=== PATIENT | female | born 1990 | race African-American/Black ===

== ENCOUNTER 2022-04-08 10:58 | Emergency (ER) | payer OTHER ==
[2022-04-08 11:16] VITALS: BP 114/65; PULSE 73; TEMP 99.2; BMI 30.1
[2022-04-08] MEDS ORDERED: DEXAMETHASONE SOD PHOSPHATE 10 MG/1 ML VIAL PO ONE (12:42)
[2022-04-08] MEDS ORDERED: DEXAMETHASONE SOD PHOSPHATE 10 MG/1 ML VIAL ONE (12:54)
== END 2022-04-08 14:21 | disposition home or self-care (01) ==
LOC: JER 10:58
DX: J02.9 Acute pharyngitis, unspecified (principal)
CPT/HCPCS: 87651; 99283-25; J1100

== ENCOUNTER 2022-08-30 08:27 | Emergency (ER) | payer OTHER ==
[2022-08-30 08:41] VITALS: BP 106/71; PULSE 105; RESP 17; TEMP 98.2; BMI 35.3
== END 2022-08-30 10:17 | disposition home or self-care (01) ==
LOC: JERFT 08:27
DX: N76.4 Abscess of vulva (principal)
CPT/HCPCS: 99282-25

== ENCOUNTER 2022-11-09 04:01 | Day surgery (SDC) | payer OTHER ==
[2022-11-04 08:55] VITALS: BMI 36.0
[2022-11-09] MEDS ORDERED: BUPIVACAINE HCL/PF 0.5% (5MG/ML) 10 ML VIAL ONE (10:35)
[2022-11-09] MEDS ORDERED: LIDOCAINE HCL 1%, 10 MG/ML (20ML VIAL) ONE (10:35)
[2022-11-09] MEDS ORDERED: MIDAZOLAM HCL 2 MG/2 ML SINGLE DOSE VIAL ONE (10:40)
[2022-11-09] MEDS ORDERED: LIDOCAINE HCL 1%, 10 MG/ML (50 mL VIAL) INF ONE ×2 (11:06)
[2022-11-09] MEDS ORDERED: BUPIVACAINE HCL/PF 0.5% (5MG/ML) 10 ML VIAL IJ ONE ×2 (11:07)
[2022-11-09] MEDS ORDERED: ONDANSETRON 4 MG/2 ML VIAL IVPUSH PRN (11:32)
[2022-11-09] MEDS ORDERED: oxyCODONE HCL 5 MG TABLET PO PRN (11:32)
[2022-11-09] MEDS ORDERED: ACETAMINOPHEN 325 MG TABLET (FP) PO PRN (11:32)
[2022-11-09 13:22] VITALS: TEMP 97.2
[2022-11-09 13:25] VITALS: BP 112/79; PULSE 69; RESP 2
== END 2022-11-09 13:05 | disposition home or self-care (01) ==
LOC: JASU-SURG 04:01
PROVIDERS: ATTEND Orthopaedic Surgery
PROC: 01N50ZZ Release Median Nerve, Open Approach (ICD-10-PCS; principal; 2022-11-09 09:30)
DX: G56.01 Carpal tunnel syndrome, right upper limb (principal)
CPT/HCPCS: 81025; 88304-TC; 94760